=== PATIENT | male | born 1960 | race African-American/Black ===

== ENCOUNTER 2021-06-16 11:04 | Emergency (ER) | payer OTHER, SELFPAY ==
[2021-06-16] VITALS (36 sets, daily range): BP systolic 139–157; BP diastolic 80–94; PULSE 60–81; RESP 12–21; TEMP 36.6–37.5; O2SAT 96–100
--- NOTE | ~2021-06-16 | XR_ITS ---
EXAMINATION: XR chest 2V DATE: 06/16/2021 11:35 INDICATION: Chest pain and hypertension TECHNIQUE: PA and lateral views of the chest are obtained. COMPARISON: None available FINDINGS: The lungs are free of acute opacities. There is no pleural effusion or pneumothorax. The ca rdiomediastinal silhouette is normal. There is moderate thoracic spondylosis. IMPRESSION: 1. No acute cardiopulmonary abnormality. Reviewed, dictated and finalized at location B.
--- NOTE | 2021-06-16 11:11 | ECG_ITS ---
Measurements Intervals [place] Rate: 78 P: 48 DC: 242 QRS: -56 QRSD: 109 T: 83 QT: 372 QTc: 425 Interpretive Statements SINUS RHYTHM WITH FIRST DEGREE AV BLOCK LEFT ANTERIOR FASCICULAR BLOCK LEFT VENTRICULAR HYPERTROPHY WITH ST-T CHANGE BASELINE WANDER- I, II, III ABNORMAL ECG Electronically Signed On 06-16-2021 11:18:04 CDT by Filemon Camejo D.O.
[2021-06-16 11:24] LABS: Basophils Percent Auto 0.7 % (0.2-1.2); Eosinophils Absolute Auto 0.2 K/mm3 (0-0.3); Hemoglobin 13.2 g/dL (14.0-18.0); Immature Granulocyte Absolute 0.01 K/mm3 (0.00-0.031); Immature Granulocyte Percent A 0.2 % (0-0.5); Lymphocytes Absolute Auto 2.62 K/mm3 (0.9-3.2); Mean Corpuscular HGB Conc 34.7 g/dl (32-36); Mean Corpuscular Hemoglobin 34.1 pg (26-34); Mean Corpuscular Volume 98.2 fl (80-100); Mean Platelet Volume 9.5 fl (7.4-10.4); Monocytes Absolute Auto 0.6 K/mm3 (0.1-0.6); Monocytes Percent Auto 10.4 % (2.6-8.5); Neutrophils Absolute Auto 2.4 K/mm3 (1.3-6.7); Neutrophils Percent Auto 40.7 % (45.5-73.1); Platelet Count Result 243 k/mm3 (150-375); Red Blood Count 3.87 M/mm3 (4.6-6.20); Red Cell Distribution Width 12.1 % (11.5-14.5)
[2021-06-16 11:36] LABS: Anion Gap 8 mmol/L (8-16); Blood Urea Nitrogen 13 mg/dL (9-20); Calcium 9.9 mg/dL (8.4-10.2); Carbon Dioxide 32 mmol/L (22-30); Chloride 100 mmol/L (98-107); Estimated Glomerular Filt Rate > 60; Glucose 170 mg/dL (65-110); Potassium 3.4 mmol/L (3.4-5.0); Sodium 140 mmol/L (137-145)
[2021-06-16 11:37] LABS: Prothrombin Time 13.2 Seconds (11.1-14.7)
[2021-06-16 11:48] LABS: Troponin I < 0.012 ng/mL (0.000-0.034)
--- NOTE | 2021-06-16 11:59 | PC.NURSE ---
Pt took two full dose aspirin this AM at 9. Dr White aware, no need for additional aspirin
--- NOTE | 2021-06-16 13:11 | ED.CHESTPAIN ---
HPI - Chest Pain General Chief Complaint: Chest Pain Stated Complaint: cp Time Seen by Provider: 06/16/21 11:36 History of Present Illness HPI narrative: Patient is a 61-year-old male who presents ER with chest pain. Pressure in his lower chest under the ribs. No nausea or vomiting. Began this morning before going to work. No improvement with coffee/food. He did take some aspirin. No history of coronary disease. Reports when he got to the ER he felt so lightheaded and thought he was having some exertional dyspnea. Denies fevers or chills or sweats, has had no cough. Rates pain 4/10. Related Data Allergies Allergy/AdvReac Type Severity Reaction Status Date / Time No Known Drug Allergies Allergy Verified 06/16/21 14:08 Review of Systems Review of Systems: All systems reviewed & are unremarkable except as noted in HPI and below Constitutional: Constitutional: Denies chills, Denies fever(s) and Denies weakness ENT: Denies nasal congestion and Denies sore throat Cardiovascular: Cardiovascular: Reports chest pain, Denies rapid heart rate and Denies radiating jaw, neck or arm pain Respiratory: Respiratory: Denies cough, Reports dyspnea and Denies wheezing Gastrointestinal: Gastrointestinal: Denies abdominal pain, Denies nausea and Denies vomiting Neurologic: Reports dizziness, Denies syncope, Denies focal weakness and Denies numbness PMFSH Past Medical History Medical History (Updated 06/16/21 @ 15:41 by Ry White MD) Hypertension Surgical History Surgical History (Updated 06/16/21 @ 13:14 by Ry White MD) No pertinent past surgical history Social History Social History (Updated 06/16/21 @ 13:14 by Ry White MD) Social History: Occasional tobacco. Tobacco type: cigars Alcohol intake: current Exam Narrative: GENERAL: Well-appearing, well-nourished, and in no acute distress. HEAD: Normocephalic, atraumatic. CHEST: Clear to auscultation. No respiratory distress. HEART: Regular rate and rhythm. Normal peripheral pulses. ABDOMEN: Soft, nontender, nondistended. EXTREMITIES: Normal range of motion. No edema. SKIN: Warm, dry, no rash. NEURO: Alert and oriented x3. PSYCH: Normal mood and affect. Course Course Emergency Course: Patient received GI cocktail and took a nap. No longer has any discomfort. May have some reflux given the fact that his discomfort was along the edge of his chest and abdomen. Will start on omeprazole. Recommend follow-up with PCP. Discussed return precautions. Vital Signs Vital signs: Vital Signs Temperature 99.5 F 06/16/21 11:46 Pulse Rate 72 06/16/21 11:46 Respiratory Rate 13 06/16/21 11:46 Pulse Oximetry 100 06/16/21 11:46 Temperature 99.5 F 06/16/21 11:46 Pulse Rate 64 06/16/21 14:17 Respiratory Rate 15 06/16/21 14:17 Blood Pressure 152/94 H 06/16/21 14:16 Pulse Oximetry 100 06/16/21 14:01 MDM - Chest Pain Lab Data Result diagrams: 06/16/21 11:19 06/16/21 11:18 Labs: Lab Results 06/16/21 06/16/21 06/16/21 Range/Units 11:18 11:18 11:19 WBC 6.0 (4.5-10.0) K/mm3 RBC 3.87 L (4.6-6.20) M/mm3 Hgb 13.2 L (14.0-18.0) g/dL Hct 38.0 L (42.0-52.0) % MCV 98.2 (80-100) fl MCH 34.1 H (26-34) pg MCHC 34.7 (32-36) g/dl RDW 12.1 (11.5-14.5) % Plt Count 243 (150-375) k/mm3 MPV 9.5 (7.4-10.4) fl Immature Gran % (Auto) 0.2 (0-0.5) % Neut % (Auto) 40.7 L (45.5-73.1) % Lymph % (Auto) 44.0 (18.3-44.2) % [place] % (Auto) 10.4 H (2.6-8.5) % Eos % (Auto) 4.0 (0-4.4) % Baso % (Auto) 0.7 (0.2-1.2) % Lymph # (Auto) 2.62 (0.9-3.2) K/mm3 [place] # (Auto) 0.6 (0.1-0.6) K/mm3 Eos # (Auto) 0.2 (0-0.3) K/mm3 Baso # (Auto) 0.0 (0.0-0.1) K/mm3 Abs Immat Gran (auto) 0.01 (0.00-0.031) K/mm3 Absolute Neuts (auto) 2.4 (1.3-6.7) K/mm3 Absolute Nucleated RBC 0.0 (0.0-0.012) K/mm3 Nuclea
[2021-06-16 13:18] LABS: Alanine Aminotransferase 33 U/L (4-50); Albumin Level 4.6 g/dL (3.5-5.1); Alkaline Phosphatase 53 U/L (38-126); Aspartate Amino Transferase 45 U/L (17-59); Bilirubin,Total 0.7 mg/dL (0.2-1.3); Lipase 240 U/L (23-300)
--- NOTE | 2021-06-16 13:28 | PC.NURSE ---
Pt offered morphine ordered at this time. Pt reports pain is 2/10, states he does not need morphine at this time.
[2021-06-16] MEDS: BELLADONNA ALK/PHENOB ELIX 10 ML, MAG HYDROX/ALUMINUM HYD/SIMETH 30 ML, LIDOCAINE HCL 2... PO (14:16)
--- NOTE | 2021-06-16 14:21 | PC.NURSE ---
MD aware of patient not requiring morphine. Ordered GI cocktail
[2021-06-16 14:40] LABS: Troponin I < 0.012 ng/mL (0.000-0.034)
== END 2021-06-16 16:14 | disposition home or self-care (01) ==
PROVIDERS: Emergency Medicine; Emergency Provider Emergency Medicine; PCP Internal Medicine
DX: R07.89 Other chest pain (principal); I10 Essential (primary) hypertension
CPT/HCPCS: 36415; 71046; 80048; 80076; 83690; 84484; 85025; 85610; 85730; 93005; 99284; A9270

== ENCOUNTER 2024-02-15 18:54 | Observation (INO) | payer OTHER, SELFPAY ==
--- NOTE | ~2024-02-15 | CT_ITS ---
CT abdomen pelvis wo/w con Ordering provider: Scott Aaron DO History: . RLQ abdominal pain . Comparison: None. Technique: CT abdomen with and without IV and without oral contrast. Radiation reduction technique ut ilized. The DLP is 1948.87mGy. 100 mL Omnipaque 350 was given IV. Findings: VISUALIZED LOWER CHEST: Dependent atelectatic changes. UPPER ABDOMINAL ORGANS: Liver: Normal. Gallbladder: Cholelithiasis. Spleen: Normal. Stomach/duodenum: Normal. Pancreas: Normal. Adrenals: Normal. Kidneys: Multiple hypodense areas seen in both kidneys suggestive of hemorrhagic cysts. Masses cannot be excluded. No definite enhancement seen in be in these areas in the postcontrast images. Stone is seen in the right mid ureter with mild right hydronephrotic changes. No stones seen in the left kidne y. Cyst is seen in the right kidney upper pole. Urinary bladder: Normal. VISUALIZED BOWEL AND MESENTERY: No evidence of diverticulitis. The appendix is not well demonstrated. The bowel is otherwise normal. No free air or free fluid. No mesenteric lymphadenopathy. RETROPERITONEUM: Normal aorta. No retroperitoneal lymphadenopathy. MUSCULOSKELETAL: Small fat-containing umbilical hernia. The superficial soft tissues are normal. Age appropriate degenerative changes of the spine. Left hip arthroplasty. Right hip severe osteoarthritic changes. IMPRESSION: Stone in the right mid ureter with right hydronephrotic changes. Cholelithiasis. Multiple hypodense lesions in the kidneys which are most likely hemorrhagic cysts. Masses cannot be e xcluded. Ultrasound confirmation of cystic nature is advised. Reviewed, dictated and finalized at location A. IMPRESSION: Stone in the right mid ureter with right hydronephrotic changes. Cholelithiasis. Multiple hypodense lesions in the kidneys which are most likely hemorrhagic cys ts. Masses cannot be excluded. Ultrasound confirmation of cystic nature is advi sed.
--- NOTE | ~2024-02-15 | XR_ITS ---
EXAMINATION: XR abdomen/kub 1V DATE: 02/16/2024 08:37 INDICATION: Ureteral stone position TECHNIQUE: A supine view of the abdomen on 2 radiographs was obtained. COMPARISON: CT dated 02/15/2024 FINDINGS: Residual excreted contrast in the bladder and right renal collecting system related to the prior cont rast enhanced CT. There is a delayed right nephrogram with mild right hydronephrosis secondary to a p ersistent 4-5 mm obstructing stone in the mid right ureter. This is subtly evident at the proximal as pect of the contrast-filled proximal ureter. There is a short segment of relatively decompressed uret er with some additional contrast in the more distal right ureter. The stone is seen at the level of t he inferior endplate of L4. Normal bowel gas pattern. Moderate right hip osteoarthritis and resurfaci ng type left total hip arthroplasty. IMPRESSION: 1. Persistent obstructing 4-5 mm stone in the mid right ureter with mild right hydronephrosis and del ayed right nephrogram. Reviewed, dictated and finalized at location B. IMPRESSION: 1. Persistent obstructing 4-5 mm stone in the mid right ureter with mild right hydronephrosis and delayed right nephrogram.
[2024-02-15 18:57] VITALS: BP 182/86; PULSE 80; RESP 20; TEMP 36.4; O2SAT 99
[2024-02-15 19:29] LABS: Basophils Percent Auto 0.4 % (0.2-1.2); Eosinophils Absolute Auto 0.3 K/mm3 (0-0.3); Eosinophils Percent Auto 2.7 % (0-4.4); Hematocrit 36.4 % (42.0-52.0); Hemoglobin 12.5 g/dL (14.0-18.0); Immature Granulocyte Absolute 0.03 K/mm3 (0.00-0.031); Immature Granulocyte Percent A 0.3 % (0-0.5); Lymphocytes Absolute Auto 2.44 K/mm3 (0.9-3.2); Lymphocytes Percent Auto 26.4 % (18.3-44.2); Mean Corpuscular HGB Conc 34.3 g/dl (32-36); Mean Corpuscular Hemoglobin 32.5 pg (26-34); Mean Corpuscular Volume 94.5 fl (80-100); Mean Platelet Volume 10.1 fl (7.4-10.4); Monocytes Absolute Auto 0.9 K/mm3 (0.1-0.6); Monocytes Percent Auto 9.7 % (2.6-8.5); Neutrophils Absolute Auto 5.6 K/mm3 (1.3-6.7); Neutrophils Percent Auto 60.5 % (45.5-73.1); Platelet Count Result 210 k/mm3 (150-375); Red Blood Count 3.85 M/mm3 (4.6-6.20); White Blood Count 9.3 K/mm3 (4.5-10.0)
--- NOTE | 2024-02-15 19:35 | ED.ABDPAIN ---
HPI - Abdominal Pain General Chief Complaint: Abdominal Pain Stated Complaint: abdominal pain Time Seen by Provider: 02/15/24 19:05 Source: patient Limitations: no limitations History of Present Illness HPI narrative: Patient is a 64-year-old male presented to the emergency department complaining of abdominal pain. Patient notes the pain started Monday and was initially intermittent but over the past approximately 4-5 hours it has become constant and seems more intense, patient describes the pain as waxing waning, is unable to give in nature to the pain, denies any history of this pain in the past, points to his right lower quadrant, wraps around to his right flank, has not tried anything for the pain, has a noticing the making the pain better or worse. Patient denies history of kidney stones. Patient denies recent injuries, recent illness, diarrhea, hematuria, urinary discomfort, urinary frequency, urinary urgency, numbness, weakness, chest pain, difficulty breathing, cough, fever. Patient admits to some slight nausea in admits to a couple episodes of nonbloody nonbilious emesis on Monday. Patient is to constipation with his last good bowel movement on Monday. Patient admits to passing gas still. Related Data Allergies Allergy/AdvReac Type Severity Reaction Status Date / Time No Known Drug Allergies Allergy Unknown Verified 02/15/24 18:55 Review of Systems Review of Systems: A 10 system review of systems was completed on the patient and is negative except for what is stated in the HPI. Nursing and ancillary documentation was reviewed. PMFSH Past Medical History Medical History (Updated 02/15/24 @ 23:36 by Scott Aaron DO) Hypertension Surgical History Surgical History (Updated 06/16/21 @ 13:14 by Ry White MD) No pertinent past surgical history Social History Social History (Updated 06/16/21 @ 13:14 by Ry White MD) Social History: Occasional tobacco. Tobacco type: cigars Alcohol intake: current Comments At time of signature, I have reviewed and agree with nursing past medical, surgical, social and family history unless otherwise noted. Please see the nursing chart for further information. There is no relevant family history pertinent to the presenting complaint. Exam Narrative: CONST: Mild acute distress complaining of abdominal pain. Well nourished. HENMT: Head is normocephalic and atraumatic. Tacky mucous membranes. No posterior oropharynx erythema. EYES: No conjunctival icterus, injection, or pallor. PERRL. NECK: No meningeal signs. RESP: Able to speak in full sentences. Normal respiratory effort. CTAB. CARDIO: Regular rate. Regular rhythm. 2+ DP and radial pulses bilaterally. GI: Nondistended. Soft. mild right lower quadrant tenderness to palpation without rebound or guarding or rigidity. No palpable masses or hernias. : No CVA tenderness to palpation. SKIN: No rashes or lesions noted on exposed skin. NEURO: Oriented x3. Moves all extremities. EXTREM/MSK/BACK: No pedal edema. PSYCH: Normal affect. Course Vital Signs Vital signs: Vital Signs Temperature 97.6 F 02/15/24 18:57 Pulse Rate 80 02/15/24 18:57 Respiratory Rate 20 02/15/24 18:57 Blood Pressure 182/86 H 02/15/24 18:57 Pulse Oximetry 99 02/15/24 18:57 Oxygen Delivery Room Air 02/15/24 18:57 Temperature 97.6 F 02/15/24 18:57 Pulse Rate 74 02/15/24 23:16 Respiratory Rate 16 02/15/24 23:16 Blood Pressure 144/85 H 02/15/24 23:16 Pulse Oximetry 99 02/15/24 23:16 Oxygen Delivery Room Air 02/15/24 18:57 MDM - Abdominal Pain MDM Narrative Medical decision making narrative: Patient presents with the above complaint. Initial vitals are remarkable for no significant abnormalities. Physical examination as noted above. Plan discussed: laboratory analysis, EKG, CT abdomen pelvis, IV fluids, Zofran, morphine. Patient ordered potassiu
--- NOTE | 2024-02-15 19:37 | ECG_ITS ---
Test Date: 2024-02-15 20:07:09 Measurements Intervals [place] Rate: 83 P: 59 MA: 246 QRS: -55 QRSD: 111 T: 77 QT: 387 QTc: 455 Interpretive Statements SINUS RHYTHM WITH FIRST DEGREE AV BLOCK LEFT ANTERIOR FASCICULAR BLOCK LEFT VENTRICULAR HYPERTROPH WITH ST-T CHANGE ABNORMAL ECG No previous ECG available for comparison Electronically Signed On 02-16-2024 06:10:40 CDT by Filemon Camejo D.O.
[2024-02-15 19:38] LABS: Appearance Urine Clear (Clear); Bacteria Urine None Seen /hpf; Bilirubin Urine Negative (Negative); Blood Urine Trace (Negative); Color Urine Yellow (Yellow); Glucose Urine UA Negative (Negative); Ketones Urine Negative (Negative); Leukocyte Esterase Ur Trace LEU/UL (Negative); Nitrate Urine Negative (Negative); Non Pathogenic Casts 0-2; Protein Urine Negative (Negative); RBC Urine 0-2 /hpf (0-2); Specific Grav Ur 1.008 (1.001-1.035); Squamous Epithelial Cell Urine None Seen /hpf (Few); Urobilinogen Urine 0.2 mg/dL (<2.0); WBC Urine 0-5 /hpf (0-3)
[2024-02-15 19:39] LABS: Add Urine Microscopic? YES; Alanine Aminotransferase 24 U/L (6-50); Albumin Level 4.8 g/dL (3.5-5.1); Alkaline Phosphatase 70 U/L (38-126); Anion Gap 9 mmol/L (4-12); Aspartate Amino Transferase 33 U/L (17-59); Bilirubin,Total 0.7 mg/dL (0.2-1.3); Blood Urea Nitrogen 20 mg/dL (9-20); Calcium 9.1 mg/dL (8.4-10.2); Carbon Dioxide 32 mmol/L (22-30); Chloride 97 mmol/L (98-107); Estimated CRCL calculation 45 ml/min; Estimated Glomerular Filt Rate 43; Glucose 157 mg/dL (65-110); Lipase 97 U/L (23-300); Potassium 2.9 mmol/L (3.4-5.0); Sodium 138 mmol/L (137-145)
[2024-02-15] MEDS: SODIUM CHLORIDE 0.9% IV 1,000 ML 999 ML IV CONT (19:44)
[2024-02-15] MEDS: MORPHINE SULFATE (*CRX) 4 MG/ML INJ IV PUSH (19:44)
[2024-02-15] MEDS: ONDANSETRON INJ 4 MG/2 ML VIAL IV PUSH (19:44)
[2024-02-15 20:02] LABS: CRP 2.7 mg/dL (<1.0); Magnesium 2.1 mg/dL (1.6-2.3)
[2024-02-15 20:09] LABS: Prothrombin Time 13.7 Seconds (11.1-14.7)
[2024-02-15 20:10] LABS: Partial Thromboplastin Time 28.5 Seconds (22.3-36.8)
[2024-02-15 20:10] LABS: Lactic Acid Reflex 1.3 mmol/L (0.7-2.0)
[2024-02-15] MEDS: KCL 20 MEQ/SW 100 ML 100 ML 50 MEQ IVPB (20:25)
[2024-02-15] MEDS: SODIUM CHLORIDE 0.9% IV 100 ML 50 ML IV CONT (20:25)
[2024-02-15] MEDS: MORPHINE SULFATE (*CRX) 4 MG/ML INJ 8 MG IV PUSH (20:53)
[2024-02-15 21:02] VITALS: BP 175/86; PULSE 78; RESP 12; O2SAT 96
[2024-02-15 22:26] VITALS: BP 153/83; PULSE 73; RESP 12; O2SAT 96
[2024-02-15 23:16] VITALS: BP 144/85; PULSE 74; RESP 16; O2SAT 99
[2024-02-15] MEDS: TAMSULOSIN HCL 0.4 MG CAPSULE PO (23:44)
[2024-02-15] MEDS: SODIUM CHLORIDE 0.9% IV 1,000 ML 125 ML IV CONT (23:44)
[2024-02-16] VITALS (12 sets, daily range): BP systolic 98–154; BP diastolic 52–76; PULSE 62–88; RESP 14–19; TEMP 36–36.8; O2SAT 92–99; BMI 31.4
--- NOTE | 2024-02-16 01:15 | PC.NURSE ---
This patient, Maycol Chu, was admitted to [facility] Surg Room 312-01. Patient/family oriented to hospital policies and general routines including ID bracelet, bed and alarms, visiting hours, pain management, procedures, bathroom and other care routines, personal items, smoking policy, room service/diet, and visiting hours. Information on how to activate the Rapid Response Team has been discussed. Patient/Family are encouraged to report perceived risks to care and to ask questions if they do not understand what they are told or what they should do.
[2024-02-16] MEDS: POTASSIUM CHLORIDE 20 MEQ ER TABLET PO (01:31)
[2024-02-16] MEDS: HYDROmorphone HCL INJ (*CRX) 1 MG/ML SYR 0.5 MG IV PUSH ×2 (01:31→11:20)
--- NOTE | 2024-02-16 03:23 | PM.IMHP ---
H&P: HPI History of Present Illness Date/Time: 02/16/24 03:23 Chief Complaint: Right flank pain Narrative: This is a pleasant 64-year-old male with PMH obesity, ABBIE on CPAP, BPH, hypertension who presents complaining of abdominal pain which wraps around his right flank. It started 2 days prior to admission and was intermittent but then became constant over time. Did not appreciate any aggravating or relieving factors. Denies history of kidney stones or recent illness or trauma. Denies diarrhea. He had 2 episodes of nausea and non bloody non bilious emesis Monday. Last BM was on Monday 3 days [employer]. He has not eaten much. ER evaluation revealed a hemodynamically stable patient, potassium 2.9, magnesium 2.1, serum creatinine 1.9, last serum creatinine 1.0 in 2020. UA with trace leuk esterase, CT abdomen pelvis without and with contrast demonstrated cholelithiasis and stone in the right mid ureter with right hydronephrotic changes, multiple hypodense lesions in the kidneys which are most likely hemorrhagic cyst, masses cannot be excluded. 1 L normal saline administered, morphine 4 mg IV x1, ondansetron, potassium 40 mEq, morphine 8 mg IV x1. Urology contacted from ER and they suggested admission for lithotripsy in the morning. Admitted on 02/16/2024. Review of Systems Review of Systems: All systems reviewed & are unremarkable except as noted in HPI and below (Subjective) [facility] Past Medical History Medical History (Updated 02/16/24 @ 03:30 by Vida Smith MD) Hypertension Surgical History Surgical History (Updated 06/16/21 @ 13:14 by Ry White MD) No pertinent past surgical history Social History Social History (Updated 06/16/21 @ 13:14 by Ry White MD) Social History: Occasional tobacco. Smoking status: Former smoker Tobacco type: cigarettes Alcohol intake: current Drinks per week: 2 Substance use type: does not use Do You Feel Safe in your Home?: Yes Lack of Transportation: No Lack of Food: Never True Current Housing: I Have Housing Concerned About Future Housing: No Difficulty Paying Gas/Electric Bills: No Difficulty Paying for Meds: No Currently Unemployed: No Education: Bachelor's Degree Difficulty w/ Childcare or Family Care: No Spiritual care concerns: No Meds Home Medications and Allergies Home Medications Medication Instructions Recorded Confirmed Type lisinopril 20 1 tablet PO HS 02/16/24 02/16/24 History mg-hydrochlorothiazide 25 mg tablet nifedipine 30 mg tablet,extended 30 mg PO HS 02/16/24 02/16/24 History release potassium chloride 20 mEq 20 meq PO EVERY OTHER DAY 02/16/24 02/16/24 History tablet,extended release(part/cryst) tadalafil 5 mg tablet 5 mg PO DAILY 02/16/24 02/16/24 History tamsulosin 0.4 mg capsule 0.4 mg PO DAILY 02/16/24 02/16/24 History Allergies Allergy/AdvReac Type Severity Reaction Status Date / Time No Known Drug Allergies Allergy Unknown Verified 02/15/24 18:55 Vital Signs Vital Signs - 24 hr 02/15/24 18:57 02/15/24 21:02 02/15/24 22:26 Temperature 97.6 F Pulse Rate 80 78 73 Respiratory Rate 20 12 12 Blood Pressure 182/86 H 175/86 H 153/83 H Pulse Oximetry 99 96 96 Oxygen Delivery Room Air 02/15/24 23:16 02/16/24 00:25 02/16/24 00:35 Temperature 96.8 F L Pulse Rate 74 68 62 Respiratory Rate 16 16 16 Blood Pressure 144/85 H 140/74 129/72 Pulse Oximetry 99 95 99 Oxygen Delivery 02/16/24 01:45 Temperature Pulse Rate 62 Respiratory Rate 18 Blood Pressure Pulse Oximetry 99 Oxygen Delivery Autop[employer] Exam Const: General: comfortable and no acute distress Other: A&O x3. Obese. Eyes: Pupils: Equal, round and reactive pupils present Neck: Neck: supple Resp: Effort & Inspection: normal respiratory effort Auscultation: clear to auscultation bilaterally Cardio: Rate: regular rate Rhythm: regular rhythm Heart sounds: no gallops,
[2024-02-16 07:07] LABS: Basophils Percent Auto 0.3 % (0.2-1.2); Eosinophils Absolute Auto 0.2 K/mm3 (0-0.3); Eosinophils Percent Auto 2.9 % (0-4.4); Hematocrit 33.6 % (42.0-52.0); Hemoglobin 11.2 g/dL (14.0-18.0); Immature Granulocyte Absolute 0.01 K/mm3 (0.00-0.031); Immature Granulocyte Percent A 0.1 % (0-0.5); Lymphocytes Absolute Auto 2.42 K/mm3 (0.9-3.2); Lymphocytes Percent Auto 31.5 % (18.3-44.2); Mean Corpuscular HGB Conc 33.3 g/dl (32-36); Mean Corpuscular Hemoglobin 32.2 pg (26-34); Mean Corpuscular Volume 96.6 fl (80-100); Mean Platelet Volume 10.3 fl (7.4-10.4); Monocytes Absolute Auto 0.9 K/mm3 (0.1-0.6); Monocytes Percent Auto 11.3 % (2.6-8.5); Neutrophils Absolute Auto 4.2 K/mm3 (1.3-6.7); Neutrophils Percent Auto 53.9 % (45.5-73.1); Platelet Count Result 179 k/mm3 (150-375); Red Blood Count 3.48 M/mm3 (4.6-6.20); White Blood Count 7.7 K/mm3 (4.5-10.0)
--- NOTE | 2024-02-16 07:17 | WPDURCON ---
Assessment and Plan Assessment and plan (1) Right renal stone: Code(s): N20.0 - Calculus of kidney Status: Acute Assessment and Plan: 5 mm right proximal ureteral stone / no KUB done. Will get KUB this morning. The stone is visible we will plan right ESWL. Stone not visible will plan cystoscopy with right ureteroscopy, laser lithotripsy with stone extraction, possible retrograde pyelography and stent placement. Risks benefits and alternative options were discussed with patient. (2) Mass of kidney of unknown nature: Code(s): N28.89 - Other specified disorders of kidney and ureter Status: Acute Assessment and Plan: Future imaging with MRI kidneys to further differentiate/evaluate Urology Consult Note HPI Date Seen: 02/16/24 Requesting Physician: Ayanna Fuentes APRN Primary Care Provider: Fito Rawls, Consult Narrative Narrative: Maycol Chu is a 64 year old male Who I have seen in the past for BPH but not for urolithiasis. He presents to the emergency department with a several hour history of right flank pain radiating into his right lower quadrant. This is associated with some nausea and mild vomiting but no fever chills or gross hematuria. Imaging demonstrated a 5 mm obstructing right proximal ureteral stone. No KUB was done so determined of calcification of the stone was not possible. Was admitted for hydration analgesics. In addition to the obstructing ureteral stone he has several bilateral indeterminate renal cystic lesions which are likely hemorrhagic cysts. He need further imaging in the future Review of Systems Review of Systems: All systems reviewed & are unremarkable except as noted in HPI and below PMFSH Past Medical History Medical History (Updated 02/16/24 @ 07:19 by Pipe Jaramillo MD) Hypertension Surgical History Surgical History (Updated 06/16/21 @ 13:14 by Ry White MD) No pertinent past surgical history Social History Social History (Updated 06/16/21 @ 13:14 by Ry White MD) Social History: Occasional tobacco. Smoking status: Former smoker Tobacco type: cigarettes Alcohol intake: current Drinks per week: 2 Substance use type: does not use Do You Feel Safe in your Home?: Yes Lack of Transportation: No Lack of Food: Never True Current Housing: I Have Housing Concerned About Future Housing: No Difficulty Paying Gas/Electric Bills: No Difficulty Paying for Meds: No Currently Unemployed: No Education: Bachelor's Degree Difficulty w/ Childcare or Family Care: No Spiritual care concerns: No Meds Home Medications and Allergies Home Medications Medication Instructions Recorded Confirmed Type lisinopril 20 1 tablet PO HS 02/16/24 02/16/24 History mg-hydrochlorothiazide 25 mg tablet nifedipine 30 mg tablet,extended 30 mg PO HS 02/16/24 02/16/24 History release potassium chloride 20 mEq 20 meq PO EVERY OTHER DAY 02/16/24 02/16/24 History tablet,extended release(part/cryst) tadalafil 5 mg tablet 5 mg PO DAILY 02/16/24 02/16/24 History tamsulosin 0.4 mg capsule 0.4 mg PO DAILY 02/16/24 02/16/24 History Allergies Allergy/AdvReac Type Severity Reaction Status Date / Time No Known Drug Allergies Allergy Unknown Verified 02/15/24 18:55 Vital Signs Vital Signs - 24 hr 02/15/24 18:57 02/15/24 21:02 02/15/24 22:26 Temperature 97.6 F Pulse Rate 80 78 73 Respiratory Rate 20 12 12 Blood Pressure 182/86 H 175/86 H 153/83 H Pulse Oximetry 99 96 96 Oxygen Delivery Room Air 02/15/24 23:16 02/16/24 00:25 02/16/24 00:35 Temperature 96.8 F L Pulse Rate 74 68 62 Respiratory Rate 16 16 16 Blood Pressure 144/85 H 140/74 129/72 Pulse Oximetry 99 95 99 Oxygen Delivery 02/16/24 01:45 02/16/24 04:00 02/16/24 05:27 Temperature Pulse Rate 62 65 Respiratory Rate 18 15 Blood Pressure Pulse Oximetry 99 Oxygen Delivery [employer]
[2024-02-16 07:21] LABS: Anion Gap 5 mmol/L (4-12); Blood Urea Nitrogen 17 mg/dL (9-20); Calcium 8.1 mg/dL (8.4-10.2); Carbon Dioxide 31 mmol/L (22-30); Chloride 103 mmol/L (98-107); Estimated CRCL calculation 56 ml/min; Estimated Glomerular Filt Rate 57; Glucose 127 mg/dL (65-110); Magnesium 2.1 mg/dL (1.6-2.3); Potassium 3.3 mmol/L (3.4-5.0); Sodium 139 mmol/L (137-145)
--- NOTE | 2024-02-16 07:23 | WPDHPUPDATE1 ---
History and Physical Update Update Date/Time: 02/16/24 07:23 History and Physical has been reviewed, including an updated exam of the patient. There are NO changes in the patient's condition. Risks, benefits, and alternatives have been discussed and questions answered. Patient agrees to proceed with procedure.
[2024-02-16] MEDS: POTASSIUM CHLORIDE INJ 40 MEQ in SODIUM CHLORIDE 0.9% IV 500 ML 130 MEQ IVPB (09:00)
[2024-02-16] MEDS: TAMSULOSIN HCL 0.4 MG CAPSULE PO (09:01)
[2024-02-16] MEDS: SODIUM CHLORIDE 0.9% IV 1,000 ML 125 ML IV CONT (09:06)
[2024-02-16] MEDS: LACTATED RINGERS 1,000 ML 30 ML IV CONT ×2 (12:40→14:57)
--- NOTE | 2024-02-16 13:02 | WPDANESEPPF ---
Anes - Initial Pre Proc Eval Procedure: Operation Date: 02/16/24 13:45 Proposed Procedures p Right Extracorporeal Shock Wave Lithotripsy(Right) - Pipe Jaramillo MD Date/Time: 02/16/24 13:02 Surgeon: Ayanna Fuentes APRN Pre Op Diagnosis: Ureterolithiasis Patient Data Age: 64 Gender: M Height: 1.83 m Weight: 105 kg Last Vital Signs Temp 36.1 C L 02/16/24 06:00 Pulse 67 02/16/24 06:00 Resp 16 02/16/24 06:00 BP 139/73 02/16/24 06:00 Pulse Ox 98 02/16/24 06:00 O2 Del Method Autopap 02/16/24 05:27 Allergies Allergy/AdvReac Type Severity Reaction Status Date / Time No Known Drug Allergies Allergy Unknown Verified 02/15/24 18:55 Home Medications Medication Instructions Recorded Confirmed Type lisinopril 20 1 tablet PO HS 02/16/24 02/16/24 History mg-hydrochlorothiazide 25 mg tablet nifedipine 30 mg tablet,extended 30 mg PO HS 02/16/24 02/16/24 History release potassium chloride 20 mEq 20 meq PO EVERY OTHER DAY 02/16/24 02/16/24 History tablet,extended release(part/cryst) tadalafil 5 mg tablet 5 mg PO DAILY 02/16/24 02/16/24 History tamsulosin 0.4 mg capsule 0.4 mg PO DAILY 02/16/24 02/16/24 History Laboratory Tests 02/15/24 02/15/24 02/15/24 19:23 19:53 19:54 WBC 9.3 K/mm3 (4.5-10.0) RBC 3.85 L M/mm3 (4.6-6.20) Hgb 12.5 L g/dL (14.0-18.0) Hct 36.4 L % (42.0-52.0) MCV 94.5 fl (80-100) MCH 32.5 pg (26-34) MCHC 34.3 g/dl (32-36) RDW 13.0 % (11.5-14.5) Plt Count 210 k/mm3 (150-375) MPV 10.1 fl (7.4-10.4) Immature Gran % (Auto) 0.3 % (0-0.5) Neut % (Auto) 60.5 % (45.5-73.1) Lymph % (Auto) 26.4 % (18.3-44.2) [place] % (Auto) 9.7 H % (2.6-8.5) Eos % (Auto) 2.7 % (0-4.4) Baso % (Auto) 0.4 % (0.2-1.2) Lymph # (Auto) 2.44 K/mm3 (0.9-3.2) [place] # (Auto) 0.9 H K/mm3 (0.1-0.6) Eos # (Auto) 0.3 K/mm3 (0-0.3) Baso # (Auto) 0.0 K/mm3 (0.0-0.1) Abs Immat Gran (auto) 0.03 K/mm3 (0.00-0.031) Absolute Neuts (auto) 5.6 K/mm3 (1.3-6.7) Absolute Nucleated RBC 0.000 K/mm3 (0.0-0.012) Nucleated RBC % 0.0 % (0.0-0.2) PT 13.7 Seconds (11.1-14.7) INR 1.0 APTT 28.5 Seconds (22.3-36.8) Sodium 138 mmol/L (137-145) Potassium 2.9 L mmol/L (3.4-5.0) Chloride 97 L mmol/L (98-107) Carbon Dioxide 32 H mmol/L (22-30) Anion Gap 9 mmol/L (4-12) BUN 20 mg/dL (9-20) Creatinine 1.90 H mg/dL (0.7-1.3) Estim Creat Clear Calc 45 ml/min Estimated GFR 43 L (59 - ) Glucose 157 H mg/dL (65-110) Lactic Acid 1.3 mmol/L (0.7-2.0) Calcium 9.1 mg/dL (8.4-10.2) Magnesium 2.1 mg/dL (1.6-2.3) Total Bilirubin 0.7 mg/dL (0.2-1.3) AST 33 U/L (17-59) ALT 24 U/L (6-50) Alkaline Phosphatase 70 U/L (38-126) C-Reactive Protein 2.7 H mg/dL (<1.0) Total Protein 8.0 g/dL (6.3-8.2) Albumin 4.8 g/dL (3.5-5.1) Lipase 97 U/L (23-300) Urine Color Yellow (Yellow) Urine Appearance Clear (Clear) Urine pH 7.0 (5.0-9.0) Ur Specific [place] 1.008 (1.001-1.035) Urine Protein Negative mg/dL (Negative) Urine Glucose (UA) Negative mg/dL (Negative) Urine Ketones Negative mg/dL (Negative) Ur Blood (Man) Trace (Negative) Urine Nitrate Negative (Negative) Urine Bilirubin Negative (Negative) Urine Urobilinogen 0.2 mg/dL (<2.0) Leukocyte Esterase Rfl Trace H BRUNO/UL (Negative) Urine RBC 0-2 /hpf (0-2) Urine WBC 0-5 /hpf
[2024-02-16 13:07] LABS: INR 1.1; Prothrombin Time 14.5 Seconds (11.1-14.7)
[2024-02-16 13:10] LABS: Partial Thromboplastin Time 27.5 Seconds (22.3-36.8)
[2024-02-16] MEDS: fentaNYL CITRATE INJ (*CRX) 100 MCG/2 ML VIAL 50 MCG IV PUSH ×2 (13:11→13:50)
[2024-02-16] MEDS: ceFAZolin 2 GM/D5W 50 ML 2 GM/50 ML BAG IVPB (14:04)
--- NOTE | 2024-02-16 15:17 | PM.DS ---
DS: Admitting Diagnosis Discharge Date 02/16/2024 Admitting Diagnosis Ureterolithiasis/SURINDER DS: Discharge Diagnosis Discharge Diagnosis (1) Abdominal pain: Qualifiers: Abdominal location: right lower quadrant Qualified Code(s): R10.31 - Right lower quadrant pain Code(s): R10.9 - Unspecified abdominal pain Status: Acute (2) Acute hypokalemia: Code(s): E87.6 - Hypokalemia Status: Acute (3) Acute kidney injury: Code(s): N17.9 - Acute kidney failure, unspecified Status: Acute (4) Ureterolithiasis: Code(s): N20.1 - Calculus of ureter Status: Acute (5) Kidney cysts: Code(s): N28.1 - Cyst of kidney, acquired Status: Acute Plan This is a pleasant 64-year-old male with PMH obesity, ABBIE on CPAP, BPH, hypertension who presents complaining of abdominal pain which wraps around his right flank. It started 2 days prior to admission and was intermittent but then became constant over time. Did not appreciate any aggravating or relieving factors. Denies history of kidney stones or recent illness or trauma. Denies diarrhea. He had 2 episodes of nausea and non bloody non bilious emesis Monday. Last BM was on Monday 3 days [employer]. He has not eaten much. ER evaluation revealed a hemodynamically stable patient, potassium 2.9, magnesium 2.1, serum creatinine 1.9, last serum creatinine 1.0 in 2020. UA with trace leuk esterase, CT abdomen pelvis without and with contrast demonstrated cholelithiasis and stone in the right mid ureter with right hydronephrotic changes, multiple hypodense lesions in the kidneys which are most likely hemorrhagic cyst, masses cannot be excluded. 1 L normal saline administered, morphine 4 mg IV x1, ondansetron, potassium 40 mEq, morphine 8 mg IV x1. Urology contacted from ER and they suggested admission for lithotripsy in the morning. Admitted on 02/16/2024. ----- Ureterolithiasis with hydronephrosis and SURINDER. Will be kept NPO with Urology consult, anticipate lithotripsy. Continue normal saline at 125 cc/hour and p.r.n. ondansetron Dilaudid. For his constipation start Senokot S1 tab b.i.d. p.r.n. and also treat the underlying ureterolithiasis and pain. Hypokalemia has been replaced, recheck at 5:00 a.m.. Renal ultrasound ordered to evaluate for the kidney cyst. His pain is currently well controlled with the regimen given in the ER. Hold [employer] lisinopril hydrochlorothiazide, nifedipine. Monitor blood pressure. Continue [employer] tamsulosin 0.4 mg p.o. q.day SCDs. NPO. Normal saline. Full code. Anticipate discharge to home. DS: Summary Hospital Course Reason for hospitalization: Ureterolithiasis/SURINDER Hospital Course: Admission: Medical Chart Right flank pain Narrative: This is a pleasant 64-year-old male with PMH obesity, ABBIE on CPAP, BPH, hypertension who presents complaining of abdominal pain which wraps around his right flank. It started 2 days prior to admission and was intermittent but then became constant over time. Did not appreciate any aggravating or relieving factors. Denies history of kidney stones or recent illness or trauma. Denies diarrhea. He had 2 episodes of nausea and non bloody non bilious emesis Monday. Last BM was on Monday 3 days [employer]. He has not eaten much. ER evaluation revealed a hemodynamically stable patient, potassium 2.9, magnesium 2.1, serum creatinine 1.9, last serum creatinine 1.0 in 2020. UA with trace leuk esterase, CT abdomen pelvis without and with contrast demonstrated cholelithiasis and stone in the right mid ureter with right hydronephrotic changes, multiple hypodense lesions in the kidneys which are most likely hemorrhagic cyst, masses cannot be excluded. 1 L normal saline administered, morphine 4 mg IV x1, ondansetron, potassium 40 mEq, morphine 8 mg IV x1. Urology contacted from ER and they suggested admission for lithotripsy in the morning. Discharged same day:
--- NOTE | 2024-02-20 06:09 | W.PM.PROC2 ---
Procedure Note - Detailed Date of Procedure 02/20/24 Pre-op Diagnosis Ureterolithiasis Post-op Diagnosis Same Procedure Performed Right [facility] Surgeon Pipe Jaramillo MD Anesthesia General Description of Procedure The patient was brought to the operative suite where he was placed in the supine position on the [facility] lithotripsy table. The focal point of the lithotripter was placed at a 5mm right mid-ureteral calculus. A total of 3000 shocks were delivered at a power setting of 6. There appeared to be good fragmentation of the stone. The patient tolerated the procedure well and was taken to the recovery room in good condition. Drains No Pathology None sent Complications No immediate complications Condition Stable
== END 2024-02-16 17:25 | disposition home or self-care (01) ==
LOC: ANHED 23:36 → ANH3MEDSUR 02-16 00:20
PROVIDERS: Urology; Admitting Provider General Practice; Emergency Provider Student in an Organized Health Care Education/Training Program; PCP Internal Medicine; Visit Provider Nurse Practitioner Family
PROC: (CPT 50590; principal; 2024-02-16 13:45)
DX: N13.2 Hydronephrosis with renal and ureteral calculous obstruction (principal); N17.9 Acute kidney failure, unspecified; E87.6 Hypokalemia; N28.1 Cyst of kidney, acquired; I10 Essential (primary) hypertension; N40.0 Benign prostatic hyperplasia without lower urinary tract symptoms; G47.33 Obstructive sleep apnea (adult) (pediatric); E66.9 Obesity, unspecified; Z68.31 Body mass index [BMI] 31.0-31.9, adult
CPT/HCPCS: 50590; 36415; 74018; 74178; 80048; 80053; 81001; 83605; 83690; 83735; 85025; 85610; 85730; 86140; 93005; 96361; 96365; 96374; 96375; 96376; 99285; A9270; G0378; J0690; J1170; J1596; J2250; J2270; J2371; J2405; J2704; J3010; J3480; J7030; J7040; J7050; J7120; Q9967

== ENCOUNTER 2024-03-11 12:36 | Outpatient (CLI) | payer OTHER, SELFPAY ==
--- NOTE | ~2024-03-11 | MR_ITS ---
EXAMINATION: MR abdomen wo/w con DATE: 03/11/2024 13:34 INDICATION: Neoplasm of uncertain behavior of left kidney. TECHNIQUE: Magnetic resonance imaging (MRI) of the abdomen was performed without and with 20 mL Multi Ana intravenous contrast. COMPARISON: CT abdomen and pelvis 02/15/2024 FINDINGS: There is diffuse hepatic steatosis. The gallbladder, spleen, pancreas, and adrenal glands are normal. There are cysts and hemorrhagic cysts in the kidneys measuring up to 3.0 cm on the right. There are no dilated loops of bowel. There are no pathologically enlarged lymph nodes. There is no free intrape ritoneal fluid. IMPRESSION: 1. Benign cysts in the kidneys. Reviewed, dictated and finalized at location A.
--- NOTE | ~2024-03-11 | XR_ITS ---
Supine and upright views of the abdomen Clinical history: Ureteral stone COMPARISON: 02/16/2024 Findings: Bowel gas pattern is nonspecific. No evidence for obstruction or free air. Probable calcifi ed pelvic phleboliths. No other abnormal mass lesion or calcification is seen. Left hip arthroplasty unchanged. Impression: No significant abnormality is seen. Reviewed, dictated and finalized at location . Impression: No significant abnormality is seen.
== END 2024-03-11 12:37 | disposition home or self-care (01) ==
PROVIDERS: PCP Internal Medicine; Visit Provider Urology
DX: N28.1 Cyst of kidney, acquired (principal)
CPT/HCPCS: 74018; 74183; A9577

== ENCOUNTER 2024-07-23 14:21 | Outpatient (RCR) | payer OTHER, SELFPAY ==
[2024-07-23 14:32] VITALS: BMI 32.9
[2024-07-23 14:34] VITALS: BMI 32.9
== END 2024-10-14 09:00 | disposition home or self-care (01) ==
LOC: ANHDMC 14:21
PROVIDERS: PCP Internal Medicine; Visit Provider Internal Medicine
DX: E11.9 Type 2 diabetes mellitus without complications (principal); Z71.3 Dietary counseling and surveillance
CPT/HCPCS: 97802

== ENCOUNTER 2024-11-12 14:27 | Outpatient (RCR) | payer OTHER, SELFPAY ==
[2024-11-12 14:51] VITALS: BMI 32.1
== END 2025-02-03 13:56 | disposition home or self-care (01) ==
LOC: ANHDMC 14:27
PROVIDERS: PCP Internal Medicine; Visit Provider Internal Medicine
DX: E11.9 Type 2 diabetes mellitus without complications (principal); Z71.3 Dietary counseling and surveillance
CPT/HCPCS: 97803